=== PATIENT | male | born 1965 | race Caucasian/White ===

== ENCOUNTER 2019-02-22 11:43 | Day surgery (SDC) | payer OTHER ==
[~2019-02-22] VITALS: Ht 177.8 cm; Wt 101.8 kg
[~2019-02-22 11:43] MED LIST: CETI5; DIPH25; EPIN.3I IM; HYDR1TAB94 PO; IBUP800 PO; Mobic15 MG; Percocet 5-3251 EACH PO; TRAM50 PO; VENL75ER
--- NOTE | 2019-02-22 12:40 | NUR ---
02/22/19 1240 Esthela Mills WHEN ASKED IF ANY PAIN PT. STATED "MY STOMACH ANY HURTS." PT. VERBALIZES FEELING "CRAMPY" & "EMPTY". PT. ALSO VERBALIZES HAVING CHRONIC LEFT KNEE PAIN. PT. VERBALIZES LEFT KNEE NEEDS REPLACED.
== END 2019-02-22 14:04 | disposition home or self-care (01) ==
LOC: ORSCSDS 11:43
PROVIDERS: Internal Medicine Gastroenterology
PROC: 0DBL8ZX Excision of Transverse Colon, Via Natural or Artificial Opening Endoscopic, Diagnostic (ICD-10-PCS; principal; 2019-02-22 13:15)
PROC: 0DBP8ZX Excision of Rectum, Via Natural or Artificial Opening Endoscopic, Diagnostic (ICD-10-PCS; principal; 2019-02-22 13:15)
PROC: 0DBN8ZX Excision of Sigmoid Colon, Via Natural or Artificial Opening Endoscopic, Diagnostic (ICD-10-PCS; principal; 2019-02-22 13:15)
PROC: 0DBH8ZX Excision of Cecum, Via Natural or Artificial Opening Endoscopic, Diagnostic (ICD-10-PCS; principal; 2019-02-22 13:15)
DX: Z12.11 Encounter for screening for malignant neoplasm of colon (principal); Z86.010 Personal history of colon polyps; D12.0 Benign neoplasm of cecum; D12.3 Benign neoplasm of transverse colon; D12.5 Benign neoplasm of sigmoid colon; K62.1 Rectal polyp; F17.210 Nicotine dependence, cigarettes, uncomplicated; Z79.899 Other long term (current) drug therapy
CPT/HCPCS: 88305; J1980; J2704; J7120

== ENCOUNTER 2021-03-06 10:49 | Emergency (ER) | payer OTHER ==
[~2021-03-06] VITALS: Ht 177.8 cm; Wt 108.9 kg
[~2021-03-06 10:49] MED LIST changes: +ALBU90OI INH; +Aspir 8181 MG PO; +Flonase 0.05% N16 GM; +MONT10T PO; -Mobic15 MG; +Mobic15 MG PO; +OXYC5 PO; +SULTRIDS PO; -VENL75ER; +VENL75ER PO
[2021-03-06 12:08] LABS: BASOPHILS ABSOLUTE AUTO 0.05 K/mm3 (0.00-0.23); BASOPHILS PERCENT AUTO 1 % (0-2); EOSINOPHILS PERCENT AUTO 0 % (0-6); Hematocrit 44.3 % (37.0-53.0); Hemoglobin 15.3 g/dL (13.5-17.5); IMMATURE GRAN ABSOLUTE AUTO 0.04 K/mm3 (0.00-0.10); IMMATURE GRAN PERCENT AUTO 0 % (0-1); LYMPHOCYTES ABSOLUTE AUTO 1.89 K/mm3 (0.84-5.20); LYMPHOCYTES PERCENT AUTO 20 % (21-46); MONOCYTES ABSOLUTE AUTO 0.98 K/mm3 (0.16-1.47); MONOCYTES PERCENT AUTO 11 % (4-13); Mean Corpuscular HGB Conc 34.5 g/dL (31.5-36.5); Mean Corpuscular Volume 84 fL (80-100); Mean Platelet Volume 9.4 fL (9.1-12.4); NEUTROPHILS PERCENT AUTO 68 % (41-73); Platelet Count 384 K/mm3 (150-400); RDW Coefficient Variation 12.6 % (11.7-14.2); RDW Standard Deviation 38.5 fL (35.1-46.3); Red Blood Cell Count 5.28 M/mm3 (4.30-5.90); White Blood Cell Count 9.26 K/mm3 (4.00-11.30)
[2021-03-06 12:25] LABS: Anion Gap 11 mmol/L (6-16); Blood Urea Nitrogen 16 mg/dL (8-24); Bun/Creatinine Ratio 15.7 (12.0-20.0); CO2, Blood 22 mmol/L (21-32); Calcium, Blood 9.7 mg/dL (8.5-10.1); Chloride, Blood 99 mmol/L (98-108); Creatinine, Blood 1.02 mg/dL (0.60-1.20); Glomerular Filtration Rate >60 (60-); Glucose, Blood 104 mg/dL (70-99); Magnesium, Blood 2.4 mg/dL (1.6-2.4); Potassium, Blood 3.7 mmol/L (3.5-5.5); Sodium, Blood 132 mmol/L (136-145)
[2021-03-06] MEDS ORDERED: DOC250 PO (14:14)
[2021-03-06] MEDS ORDERED: BISA10S PR (14:14)
[2021-03-06] MEDS ORDERED: ONDA4ODT MM (14:14)
[2021-03-06] MEDS ORDERED: SENNA LAXATIVE8.6 MG PO (14:14)
== END 2021-03-06 14:40 | disposition home or self-care (01) ==
LOC: ER 10:49
PROVIDERS: Student in an Organized Health Care Education/Training Program
DX: E86.0 Dehydration (principal); K59.00 Constipation, unspecified; T40.2X5A Adverse effect of other opioids, initial encounter; F17.210 Nicotine dependence, cigarettes, uncomplicated; Z79.82 Long term (current) use of aspirin; Z79.899 Other long term (current) drug therapy
CPT/HCPCS: 36415; 80048; 83735; 85025; 93005; 93010; 96374; 99284-25; A9270; J2405; J7030

== ENCOUNTER 2022-06-12 09:27 | Day surgery (SDC) | payer OTHER ==
[~2022-06-12] VITALS: Ht 180.3 cm; Wt 111.7 kg
[~2022-06-12 09:27] MED LIST changes: +BISA10S PR; +DOC250 PO; +ONDA4ODT MM; +SENNA LAXATIVE8.6 MG PO
== END 2022-06-12 11:15 | disposition home or self-care (01) ==
LOC: ORSCSDS 09:27
PROVIDERS: Internal Medicine Gastroenterology
PROC: 0DBK8ZX Excision of Ascending Colon, Via Natural or Artificial Opening Endoscopic, Diagnostic (ICD-10-PCS; principal; 2022-06-12 10:15)
PROC: 0DBL8ZX Excision of Transverse Colon, Via Natural or Artificial Opening Endoscopic, Diagnostic (ICD-10-PCS; principal; 2022-06-12 10:15)
DX: Z12.11 Encounter for screening for malignant neoplasm of colon (principal); Z86.010 Personal history of colon polyps; D12.2 Benign neoplasm of ascending colon; D12.3 Benign neoplasm of transverse colon; K57.30 Diverticulosis of large intestine without perforation or abscess without bleeding; F17.210 Nicotine dependence, cigarettes, uncomplicated; Z79.899 Other long term (current) drug therapy
CPT/HCPCS: 88305; J2704; J7120

== ENCOUNTER → 2023-01-16 | Outpatient (CLI) | payer OTHER ==
[2023-01-16 17:48] LABS: BASOPHILS ABSOLUTE AUTO 0.05 K/mm3 (0.00-0.23); BASOPHILS PERCENT AUTO 1 % (0-2); EOSINOPHILS ABSOLUTE AUTO 0.24 K/mm3 (0.00-0.68); EOSINOPHILS PERCENT AUTO 3 % (0-6); Hematocrit 47.7 % (37.0-53.0); Hemoglobin 16.3 g/dL (13.5-17.5); IMMATURE GRAN ABSOLUTE AUTO 0.02 K/mm3 (0.00-0.10); IMMATURE GRAN PERCENT AUTO 0 % (0-1); LYMPHOCYTES ABSOLUTE AUTO 2.26 K/mm3 (0.84-5.20); LYMPHOCYTES PERCENT AUTO 31 % (21-46); MONOCYTES ABSOLUTE AUTO 0.53 K/mm3 (0.16-1.47); MONOCYTES PERCENT AUTO 7 % (4-13); Mean Corpuscular HGB 29.8 pg (26.0-34.0); Mean Corpuscular HGB Conc 34.2 g/dL (31.5-36.5); Mean Corpuscular Volume 87 fL (80-100); Mean Platelet Volume 9.4 fL (9.1-12.4); NEUTROPHILS ABSOLUTE AUTO 4.15 K/mm3 (1.96-9.15); NEUTROPHILS PERCENT AUTO 57 % (41-73); Platelet Count 240 K/mm3 (150-400); RDW Coefficient Variation 13.6 % (11.7-14.2); RDW Standard Deviation 43.8 fL (35.1-46.3); Red Blood Cell Count 5.47 M/mm3 (4.30-5.90); White Blood Cell Count 7.25 K/mm3 (4.00-11.30)
[2023-01-16 17:56] LABS: Albumin/Globulin Ratio 1.3 (0.8-1.8); Bilirubin, Total 0.5 mg/dL (0.1-1.0); Bun/Creatinine Ratio 17.3 (12.0-20.0); Calcium, Blood 9.2 mg/dL (8.5-10.1); Creatinine, Blood 0.98 mg/dL (0.60-1.20); Globulin, Blood 3.2 g/dL (2.2-4.0); Potassium, Blood 4.3 mmol/L (3.5-5.5); Total Protein, Blood 7.2 g/dL (6.4-8.2)
== END | disposition home or self-care (01) ==
LOC: LAB SHORT 17:42 → LAB 17:42
PROVIDERS: Emergency Medicine
DX: R10.9 Unspecified abdominal pain (principal)
CPT/HCPCS: 80053; 83690; 85025

== ENCOUNTER → 2025-05-31 | Outpatient (CLI) | payer OTHER ==
[2025-05-31 15:31] LABS: Source, Urine Clean Catch
[2025-05-31 17:33] LABS: Bilirubin, Urine Neg (Neg); Glucose Qualitative, Urine Neg (Neg); Ketones, Urine Neg (Neg); Leukocyte Esterase, Urine Neg (Neg); Protein, Urine Neg (Neg); Specific Gravity, Urine 1.010 (1.003-1.022); Urobilinogen, Urine NORM (Normal)
[2025-05-31 17:53] LABS: Color, Urine Pale Yellow (P-Yellow)
[2025-05-31 17:54] LABS: White Blood Cells, Urine 0-2 /hpf (0-5)
== END ==
LOC: LAB 15:29 → LAB SHORT 15:29 → LAB FUT 05-02 12:35
PROVIDERS: Urology
DX: N20.0 Calculus of kidney (principal)
CPT/HCPCS: 81001; 87086

== ENCOUNTER 2025-06-29 09:01 | Day surgery (SDC) | payer OTHER ==
[~2025-06-29] VITALS: Ht 177.8 cm; Wt 107.0 kg
[2025-06-29] MEDS ORDERED: ALLERGY RELIEF10 M2 (09:38)
--- NOTE | 2025-06-29 11:20 | NUR ---
06/29/25 1120 LEATHA GASTELUM CASE IS DELAYED DUE TO DR SANTOS HAVING AN EMERGENCY PROCEDURE AT THE MAIN. PT HAD RN EXPLAIN OPTIONS OF WAITING OR RESCHEDULING. PT GIVEN A RECLINER AND WARM BLANKETS/HIS CELL AND GLASSES AND MAGAZINES/ WITH CALL LIGHT IN REACH
[2025-06-29 13:22] VITALS: BP 118/84
== END 2025-06-29 13:19 | disposition home or self-care (01) ==
LOC: ORSCSDS 09:01
PROVIDERS: Internal Medicine Gastroenterology
PROC: 0DJD8ZZ Inspection of Lower Intestinal Tract, Via Natural or Artificial Opening Endoscopic (ICD-10-PCS; principal; 2025-06-29 10:30)
DX: Z12.11 Encounter for screening for malignant neoplasm of colon (principal); Z86.0101 Personal history of adenomatous and serrated colon polyps
CPT/HCPCS: J2704; J7120